=== PATIENT | male | born 1960 | race Caucasian/White ===

== ENCOUNTER → 2017-06-28 | Outpatient (CLI) | payer BC ==
[2017-06-28 08:48] LABS: CREATININE 1.2 mg/dL (0.70-1.30)
--- NOTE | 2017-06-28 16:43 | MRI ---
MRI BRAIN WITHOUT AND WITH CONTRAST CLINICAL HISTORY: 56-year-old male with peripheral vision loss. COMPARISON: None. TECHNIQUE: Multiplanar, multisequence MR images of the brain were obtained prior to and following th e uneventful intravenous administration of contrast. FINDINGS: There is no evidence of diffusion restriction. The craniocervical junction is normal. Partially empty sella. Pituitary and optic nerve complex are otherwise normal. 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 Scattered punctate T2 FLAIR signal hyperintensities are pr esent within the periventricular and supraventricular white matter that are nonspecific in appearance but most likely to represent microvascular white matter ischemic changes. Normal signal characterist ics and morphology are demonstrated within the corpus callosum, deep koenig nuclei, brainstem and cereb ellum. The major vascular channels opacify normally and the major vascular flow voids, to include the dural venous sinuses, are intact. Age advanced cortical volume loss is present, with commensurate blanc lcal and ventricular prominence. The basilar cisterns are normal. There is no evidence of abnormal in tracranial enhancement. The orbits and globes are within normal limits. The paranasal sinuses and mastoids are clear. IMPRESSION: 1. Chronic ischemic insult with macro cystic encephalomalacia and gliosis involving the right [employer] ter ritory (parieto-occipital lobes to include the visual cortex), this would account for left-sided carla pheral vision loss. No other lesion within the visual pathways. 2. Chronic, mild microvascular white matter ischemic insult with associated volume loss. 3. No abnormal intracranial enhancement. Reported By:
== END | disposition home or self-care (01) | DRG 123 ==
LOC: RAD 08:15
PROVIDERS: ATTEND Optometrist
DX: H53.462 Homonymous bilateral field defects, left side (principal); G93.89 Other specified disorders of brain
CPT/HCPCS: 36415; 70553; 82565; 84520